=== PATIENT | male | born 1940 | race Caucasian/White ===

== ENCOUNTER → 2023-11-08 16:37 | Outpatient (REF) | payer MEDICARE, BC, SELFPAY ==
[2023-11-08 18:59] LABS: % Basophils 0.8 % (0-2); % Eosinophils 4.5 % (0-6); % Immature Granulocytes 0.3 % (0-0.5); % Lymphocytes 38.1 % (20.5-51.1); % Monocytes 10.6 % (1.7-9.3); % Neutrophils 45.7 % (42.2-75.2); Absolute Basophils 0.1 10^3/uL (0-0.2); Absolute Eosinophils 0.3 10^3/uL (0-0.7); Absolute Lymphocytes 2.3 10^3/uL (1.2-3.4); Absolute Monocytes 0.6 10^3/uL (0.1-0.6); Absolute Neutrophils 2.7 10^3/uL (1.4-6.5); Hematocrit 43.5 % (39.0-52.0); Hemoglobin 14.8 g/dL (13.0-18.0); Mean Corpuscular Volume 94.2 fL (80.0-94.0); Mean Platelet Volume 11.2 fL (7.4-10.4); Nucleated Red Blood Cells % 0 % (-); Platelet Count 178 10^3/uL (130-400); Red Blood Cell Count 4.62 10^6/uL (4.70-6.10); Red Cell Dist. Width 12.8 % (11.5-14.5)
[2023-11-08 19:13] LABS: Blood Urea Nitrogen 19 mg/dl (9-20); Calcium 9.6 mg/dl (8.4-10.2); Carbon Dioxide 25 mmol/L (22-30); Chloride 109 mmol/L (98-107); Glucose 93 mg/dl (70-99); Potassium 4.3 mmol/L (3.5-5.1); Sodium 141 mmol/L (135-145); eGFR > 60.00
== END ==
LOC: REG 16:37
PROVIDERS: ATTENDING PHYSICIAN Specialist; FAMILY PHYSICIAN Internal Medicine
DX: Z01.818 Encounter for other preprocedural examination (principal)
CPT/HCPCS: 36415; 80048; 85025

== ENCOUNTER → 2023-11-14 08:59 | Outpatient (REF) | payer MEDICARE, BC, SELFPAY | LOC: RCS 08:59 | PROVIDERS: ATTENDING PHYSICIAN Internal Medicine Cardiovascular Disease; FAMILY PHYSICIAN Internal Medicine | DX: R06.02 Shortness of breath (principal) | CPT/HCPCS: 93306 ==

== ENCOUNTER → 2023-11-15 06:55 | Outpatient (REF) | payer MEDICARE, BC, SELFPAY ==
[2023-11-15] MEDS: FLUSH (NSS) 1 FLUSH IV (08:38)
[2023-11-15] MEDS: LEXISCAN 0.400000000000000022 MG IV (08:38)
== END ==
LOC: RCS 06:55
PROVIDERS: ATTENDING PHYSICIAN Internal Medicine Cardiovascular Disease; FAMILY PHYSICIAN Internal Medicine
DX: R06.02 Shortness of breath (principal)
CPT/HCPCS: 78452; 93017; A9500; J2785

== ENCOUNTER → 2024-06-11 09:54 | Outpatient (REF) | payer MEDICARE, BC, SELFPAY | LOC: PAVMRI 09:54 | PROVIDERS: ATTENDING PHYSICIAN Specialist; FAMILY PHYSICIAN Internal Medicine | DX: M54.16 Radiculopathy, lumbar region (principal) | CPT/HCPCS: 72148 ==

== ENCOUNTER 2024-09-06 06:11 | Day surgery (SDC) | payer MEDICARE, BC, SELFPAY ==
[2024-09-06 07:04] VITALS: BMI 29.0
[2024-09-06 07:05] VITALS: BP 120/77; BMI 29.0
[2024-09-06 10:10] VITALS: BP 110/75
[2024-09-06 10:15] VITALS: BP 110/68
[2024-09-06 10:30] VITALS: BP 112/72
[2024-09-06 10:58] VITALS: BP 121/74
[2024-09-06 11:00] VITALS: BP 121/74
== END 2024-09-06 11:10 | disposition home or self-care (01) ==
LOC: SDS 06:11
PROVIDERS: ATTENDING PHYSICIAN Internal Medicine Gastroenterology
DX: D12.0 Benign neoplasm of cecum (principal); K64.0 First degree hemorrhoids
CPT/HCPCS: 45390; 88305

== ENCOUNTER 2024-09-06 21:28 | Inpatient (IN) | payer MEDICARE, BC, SELFPAY ==
[2024-09-06] VITALS (8 sets, daily range): BP systolic 73–140; BP diastolic 51–81; BMI 28.3
[2024-09-06] MEDS: NSS 1000 IV ×2 (17:58→23:25)
[2024-09-06 18:19] LABS: % Basophils 0.6 % (0-2); % Eosinophils 3.5 % (0-6); % Immature Granulocytes 0.3 % (0-0.5); % Lymphocytes 27.2 % (20.5-51.1); % Neutrophils 59.4 % (42.2-75.2); Absolute Basophils 0.1 10^3/uL (0-0.2); Absolute Eosinophils 0.3 10^3/uL (0-0.7); Absolute Lymphocytes 2.2 10^3/uL (1.2-3.4); Absolute Monocytes 0.7 10^3/uL (0.1-0.6); Absolute Neutrophils 4.7 10^3/uL (1.4-6.5); Hematocrit 43.7 % (39.0-52.0); Hemoglobin 14.7 g/dL (13.0-18.0); Mean Corp Hgb Conc. 33.6 g/dL (33.0-37.0); Mean Platelet Volume 10.6 fL (7.4-10.4); Nucleated Red Blood Cells % 0 % (-); Platelet Count 213 10^3/uL (130-400); Red Cell Dist. Width 12.7 % (11.5-14.5)
[2024-09-06 18:30] LABS: PT 14.8 Sec (11.4-14.6)
[2024-09-06 18:36] LABS: ALT (SGPT) 24 U/L (0-50); AST (SGOT) 35 U/L (17-59); Albumin 4.5 g/dl (3.5-5.0); Alkaline Phosphatase 60 U/L (38-126); Blood Urea Nitrogen 23 mg/dl (9-20); Calcium 9.4 mg/dl (8.4-10.2); Carbon Dioxide 18 mmol/L (22-30); Chloride 107 mmol/L (98-107); Estimated Creatinine Clearance 55 ml/min; Glucose 108 mg/dl (70-99); Potassium 4.4 mmol/L (3.5-5.1); Sodium 138 mmol/L (135-145); Total Protein 6.7 g/dl (6.3-8.2); eGFR > 60.00
--- NOTE | 2024-09-06 20:01 | ED.GENMED ---
History of Present Illness
General
Chief Complaint: Rectal Bleeding
Time Seen by Provider: 09/06/24 17:53
History of Present Illness
History of Present Illness:
83-year-old male with history of hyperlipidemia and hypertension presenting to the emergency department with multiple episodes of blood per rectum. Patient status post polyp removal by GI today by colonoscopy. He reports that when he left the
procedure, had no issue. Upon returning home, had 2 episodes of large-volume blood. He has not on any blood thinners. Denies any issues with bleeding in the past. Denies any associate abdominal pain. Does report some lightheadedness. Denies
chest pain or difficulty breathing. Denies additional acute medical complaints
Past History
Past History
ED Past Medical History: HTN, Other (gout ) and Other (hypercalcemia )
ED Past Surgical History: Orthopedic (bilateral carpal tunnel surgery) and Other (parathyroid removed 2010)
Social History
Tobacco: Smoker
Personal:
Living: with family
Employment: Retired
Phy Exam
Physical Exam
Physical Exam:
General: Pale
HEENT: protecting airway
Neck: appears supple
CV: Normal heart rate, regular rhythm
Resp: No accessory muscle use, no increased work of breathing, lungs clear to auscultation bilaterally
Abd: Soft and non-distended, no tenderness to palpation
Extremities: No deformities, no swelling
Neuro: alert, no focal neurologic deficit
: deferred
Rectal: No significant external hemorrhoids
Psych: Normal affect
Skin: Intact
Course
Orders/Labs/Results
Orders:
Orders
09/06/24 17:54
0.9% Sodium Chloride 1000 ml [Nss] 1,000 ml IV BOLUS
09/06/24 17:56
CT Abd/pelvis Angio W/wo Iv Urgent
Comment:
Reason For Exam: active GI bleeding after polyp removed today
IV Insert/Care/Rem.- Treatment PRN
09/06/24 17:57
Type And Crossmatch [Type+Screen] Urgent
Complete Blood Count/With Diff Urgent
Comprehensive Metabolic Panel Urgent
PTT Urgent
Prothrombin Time Urgent
09/06/24 18:33
ABO2 Urgent
BBK Wristband Number:
Associate notified that ABO2 has been ordered: [id number]
Date: 09/06/24
Time: 18:27
Boilermaker Pipe Fitter ID: [id number]
Abnormal Lab Results
09/06/24
17:57
RBC 4.60 L 10^6/uL
(4.70-6.10)
MCV 95.0 H fL
(80.0-94.0)
MCH 32.0 H pg
(27.0-31.0)
MPV 10.6 H fL
(7.4-10.4)
Absolute Monos (auto) 0.7 H 10^3/uL
(0.1-0.6)
PT 14.8 H Sec
(11.4-14.6)
Carbon Dioxide 18 L mmol/L
(22-30)
BUN 23 H mg/dl
(9-20)
Glucose 108 H mg/dl
(70-99)
09/06/24 17:57
09/06/24 17:57
Vital Signs
Initial and Last Documented VS:
Initial Vital Signs
Temp Pulse Resp BP Pulse Ox
97.4 F 103 18 73/51 96
09/06/24 17:36 09/06/24 17:36 09/06/24 17:36 09/06/24 17:36 09/06/24 17:36
Last Documented Vital Signs
Temp Pulse Resp BP Pulse Ox
97.4 F 71 13 112/77 95
09/06/24 17:38 09/06/24 18:30 09/06/24 18:30 09/06/24 18:00 09/06/24 18:30
MDM/Problems Addressed
MDM/Problems Addressed:
83-year-old male presenting for rectal bleeding after polyp removal by GI today. Vital signs on arrival significant for hypotension.
On exam, patient is awake and alert. He is resting comfortably. He notes 2 episodes of large-volume bleeding prior to arrival. After GI intervention, concern for active arterial GI bleeding. Patient started immediately on IV fluids for volume
resuscitation given hypotension. Will plan for laboratory analysis including CBC and type and screen. Will make GI aware and plan for GI bleeding scan.
18:20 - GI made aware
20:10 - Hemoglobin within normal limits and blood pressure has stabilized with IV fluids. Patient did pass a large volume of blood per rectum in the ER, however blood pressure maintained. CT shows acute GI bleeding. IR made aware, is coming in
for procedure. Plan for admission. Patient and updated at bedside
*Critical Care Note
Total Time (30-74mins, 75-104mins- exclusive of procedures): 52
comment:
The high probability of a clinically significant, sudden or life threatening deterioration of the hemodynamic system(s) required my full and direct attention, intervention and personal management. The aggregate critical care time was 52 minutes.
This time is in addition to time spent performing reported procedures but includes the following:
[x] Data Review and interpretation
[x] Patient assessment and monitoring of vital signs
[x] Documentation
[x] Medication orders and management
ED Attending Note
-
Portions of this chart may have been created with voice recognition software.� Occasional wrong word or��sound alike� substitutions may have occurred due to the inherent limitations of voice recognition software.
Discharge Plan
Departure
Patient Disposition: Admit
Date of Disposition: 09/06/24
Time of Disposition: 20:14
Presentation/result/management discussed w/ accepting MD/DO: Hospitalist
Patient with high blood pressure during this ER visit?: No
Condition: Critical
Discharge Problem:
GI bleed, Hypotension
Prescriptions:
No Action
atorvastatin 20 MG tablet
20 mg PO DAILY
aspirin 81 MG tablet,chewable
81 mg PO DAILY
lisinopril [Zestril] 40 MG tablet
40 mg PO DAILY
febuxostat [Uloric] 40 mg Tablet
20 mg PO DAILY
Theragen Tablet
1 tab PO DAILY
Referrals:
Gabo Ricks MD [Family Provider] -
Interventions
Interventions:
*Risk Screen - Suicide Last Done: 09/06/24 17:38
*General Assessment Last Done: 09/06/24 18:04
*Neglect/Abuse Screening Last Done: 09/06/24 18:04
*ED- Fall Risk Assessment Last Done: 09/06/24 18:04
GV-Vqcune-Ecsrfargxh Assessment Last Done: 09/06/24 18:04
ED- Cardiac Assessment Last Done: 09/06/24 18:04
ED- Pulmonary Assessment Last Done: 09/06/24 18:04
Discharge Date and Time
Print Language: URDU
--- NOTE | 2024-09-06 20:39 | HPS.HSE ---
Family Physician
-
Family Physician: Gabo Ricks
Chief Complaint
-
Rectal bleeding
History of Present Illness
Patient is a 83-year-old male with past medical history significant for hyperlipidemia, essential hypertension and gout who presented to [facility] ED for evaluation of bright red blood from rectum. Patient reports that he had a colonoscopy
with Dr. Barakat today to remove a large polyp. He reports that when he left after procedure today he had no issues and went home to nap. He reports getting up from nap a few hours after arriving home and went to bathroom where he had a large amount of
bright red blood from rectum x2 so he returned to hospital ED for evaluation. Patient reports having a 3rd episode after arrival at hospital and was associated with dizziness and diaphoresis. Patient denies any recent illness, fever, chills, cough,
shortness of breath, chest pain, nausea, vomiting, constipation, diarrhea or urinary symptoms.
Medical History
Past Medical History
Past Medical History: Reports Other
Additional Past Medical History:
hyperlipidemia
essential hypertension
gout
Past Surgical History: Reports Other
Additional Past Surgical History:
colonoscopy
Left total hip
partial parathyroidectomy
bilateral carpal tunnel repair
Social History
Tobacco: Non-smoker
Alcohol: Occasional (2-3 drinks per week )
Drug: None
Personal:
Living: With Family
Employment: Retired
Family History
Family History: Not pertinent
Allergies / Home Medications
Allergies reflects when Allergies were last updated in [employer].
Home Medications with original date entered in [employer]
Allergy/Medication List:
Allergies
Allergy/AdvReac Type Severity Reaction Status Date / Time
No Known Allergies Allergy Verified 09/06/24 06:58
Home Medications
aspirin 81 mg chewable tablet 81 mg PO DAILY 01/04/10
atorvastatin 20 mg tablet 20 mg PO DAILY 01/04/10
lisinopril 40 mg tablet (Zestril) 40 mg PO DAILY 02/06/18
febuxostat 40 mg tablet (Uloric) 20 mg PO DAILY 09/06/24
therapeutic multivitamin 1 tab PO DAILY 09/06/24
Review of Systems
-
History Source: Patient
Constitutional: Reports No Symptoms
EENT: Reports No Symptoms
Respiratory: Reports No Symptoms
Cardiac: Reports No Symptoms
Abdomen/GI: Reports No Symptoms and Bloody Stools
: Reports No Symptoms
Musculoskeletal: Reports No Symptoms
Skin: Reports No Symptoms
Neurological: Reports No Symptoms
Endocrine: Reports No Symptoms
Hematologic/Lymphatic: Reports No Symptoms
Psych: Reports No Symptoms
Physical Exam
Vital Signs
Vital Signs
Temp Pulse Resp BP Pulse Ox
97.4 F 71 13 112/77 95
09/06/24 17:38 09/06/24 18:30 09/06/24 18:30 09/06/24 18:00 09/06/24 18:30
Physical Exam
General: Well Developed, Well Nourished and No Apparent Distress
HEENT: NormoCephalic, Moist mucous membranes, Atraumatic, PERRLA, Rendon Conjunctivae, Nose Appears Normal and Ears Appear Normal
Respiratory: Clear and Non Labored Respirations
Cardiac: S1/S2 and Regular Rhythm; No Murmur, Rub or Gallop
GI: Soft, Non Tender, Non Distended and Normal Bowel Sounds; No Organomegaly
Rectal: Hem Positive
Genito-urinary: Deferred by me
Musculoskeletal: No Clubbing, No Cyanosis and No Edema
Skin: No Rash
Neuro: Awake, Alert, AO x 3 and Nonfocal/grossly intact
Psych: Calm and Intact Judgment/Insight
Laboratory Results
-
09/06/24 17:57
09/06/24 17:57
Laboratory Results
PT 14.8 Sec (11.4-14.6) H 09/06/24 17:57
INR 1.10 09/06/24 17:57
APTT 30.0 Sec (23.4-35.0) 09/06/24 17:57
Total Bilirubin 1.0 mg/dl (0.2-1.3) 09/06/24 17:57
AST 35 U/L (17-59) 09/06/24 17:57
ALT 24 U/L (0-50) 09/06/24 17:57
Alkaline Phosphatase 60 U/L (38-126) 09/06/24 17:57
Data Reviewed
-
CT Scan: Report Reviewed by me (Abd/Pel: 1. ACUTE ACTIVE INTRALUMINAL GASTROINTESTINAL BLEED in the CECUM at the level of the ileocecal junction with a large amount of intraluminal hemorrhage extending from the cecum into the ascending colon (12.9
cm in length). 2. Moderate distention of the rectum with intraluminal hemorrhage)
Lab Data: Labs Reviewed by me (hgb 14.7, hct 43.7, BUN 23, creat 1.2)
Impression/Plan
-
IMPRESSION/PLAN:
#GI bleed
Abd/Pel CT: 1. ACUTE ACTIVE INTRALUMINAL GASTROINTESTINAL BLEED in the CECUM at the level of the ileocecal junction with a large amount of intraluminal hemorrhage extending from the cecum into the ascending colon
(12.9 cm in length).
2. Moderate distention of the rectum with intraluminal hemorrhage.
3. 2.9 cm diameter infrarenal abdominal aortic aneurysm.
4. Large number of bilateral renal cysts.
5. 5 mm nonobstructing right intrarenal calculus.
6. Small hiatal hernia.
7. Chronic urinary bladder outlet obstruction.
8. 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
- Admit to IMU
- Consult GI
- Consult IR
- IVF
- hold antihypertensives
- NPO
#hyperlipidemia
- continue atorvastatin
#essential hypertension
- hold lisinopril
#gout
- continue febuxostat
Code status: full code
DVT Prophylaxis: SCDs
--- NOTE | 2024-09-06 20:39 | W.PN.UPDATE ---
Update Note
Progress Note Update
Patient seen conjunction with PAWAN. I agree with the findings on history and physical. I concur with assessment and plan listed otherwise.
This is an 83-year-old with past medical history significant for hypertension, hyperlipidemia presenting to the emergency department with rectal bleeding. He is postop day #0 status post colonoscopy with removal of proximal cecal polyp this a.m.
Patient reports likely sessile polyp biopsy pending. Patient reports that at around 4 PM he woke up and had a bowel movement that was. Bloody. Reported that the bowl was filled with blood. He laid back and felt dizzy. He had another bowel
movement that was also bloody and associated with dizziness. After the second bowel movement decided come to the emergency department.
Patient only takes 81 mg aspirin daily. He is not on any thinners. He denies any NSAID use.
On immediate arrival in the emergency department he was afebrile, he was hypotensive to the 80s. He was given 1 L of normal saline. Current vitals showed blood pressure of 112/70 with a pulse of 71 satting 95% on room air. Hemoglobin was 14 and
unchanged from prior. Platelets were normal. Electrolytes BUN/creatinine with unremarkable.
CT of the abdomen pelvis showed active hemorrhage at the level of the ileocecal junction with large amount of intraluminal hemorrhage extending from the cecum into the ascending colon.
IR consulted and patient to be taken to IR suite.
Assessment and plan
Post procedure hemorrhage likely secondary to removal of large sessile polyp. HD unstable initially requiring IV fluids. Hgb has remained stable thus far.
- admit to IMU
- NPO for now
- IV fluids
- 2 large bore IVs placed
- type and screen, transfuse for HD instability or Hgb < 7
- IR taking patient to suite now
- GI consultation in am
DVT PPX - SCDs
Code status - Full Code
--- NOTE | 2024-09-06 21:35 | PTCARENOTE ---
Patient asking about his phone upon arrival to IR, stating he had it 'next to him in the bed'-his belongings and bedsheets searched by this RN. No phone found. Patient had shoes, pants and belt, shirt/sweater and reading glasses. This RN also
checked with CT scan staff regarding phone (as he was in that department prior to arriving in IR) and phone was not there either. Receiving RN in IMU notified.
--- NOTE | 2024-09-06 22:30 | W.PN.UPDATE ---
Update Note
Progress Note Update
SMA arteriogram performed, including superselective agram of multiple branches of the right colic branch of the SMA in the area of the colonoscopic clips. No extravasation of contrast was seen, therefore no embolization was performed.
He remained hemodynamically stable throughout the procedure, and did not pass bloody BM.
Bedrest for 2 hours.
[2024-09-06 23:48] LABS: Hematocrit 34.6 % (39.0-52.0)
[2024-09-07] VITALS (16 sets, daily range): BP systolic 100–136; BP diastolic 56–95; PULSE 70–111; BMI 27.9
--- NOTE | 2024-09-07 04:29 | PTCARENOTE ---
Received patient from [facility] overnight. BP stable with maps above 65. Orthostatic vital signs obtained. One large amount of blood per rectum. No complaints of dizziness/ diaphoresis. Continuing with q6h H+H.
[2024-09-07 04:30] LABS: Hematocrit 32.5 % (39.0-52.0); Hemoglobin 11.1 g/dL (13.0-18.0); Mean Corp Hgb Conc. 34.2 g/dL (33.0-37.0); Mean Corpuscular Hgb 32.5 pg (27.0-31.0); Mean Platelet Volume 10.8 fL (7.4-10.4); Platelet Count 154 10^3/uL (130-400); Red Blood Cell Count 3.42 10^6/uL (4.70-6.10); Red Cell Dist. Width 12.8 % (11.5-14.5); White Blood Cell Count 8.5 10^3/uL (4.8-10.8)
[2024-09-07] MEDS: ULORIC 20 MG PO (08:37)
[2024-09-07] MEDS: LIPITOR 20 MG PO (08:38)
[2024-09-07] MEDS: NSS (PRESERVATIVE FREE) 10 ML IV (08:39)
[2024-09-07] MEDS: PROTONIX IV 40 MG IV (08:39)
[2024-09-07] MEDS: NSS 1000 IV ×2 (08:40→19:57)
--- NOTE | 2024-09-07 09:42 | W.PN.HOSP.TC ---
Today's Communication/Plan
-
Stable for telemetry
Assessment / Plan
Assessment / Plan
83-year-old male with past medical history significant for hyperlipidemia, essential hypertension and gout who presented to [facility] ED for evaluation of bright red blood from rectum. Patient reports that he had a colonoscopy with Dr. Barakat
today to remove a large polyp. He reports that when he left after procedure today he had no issues and went home to nap. He reports getting up from nap a few hours after arriving home and went to bathroom where he had a large amount of bright red
blood from rectum x2 so he returned to hospital ED for evaluation. Patient reports having a 3rd episode after arrival at hospital and was associated with dizziness and diaphoresis.
#Post polypectomy bleed
#Acute blood loss anemia
Appreciate IR input, 09/06 SMA arteriogram was performed, no extravasation of contrast was seen, therefore no embolization was performed
GI consult pending, trend hemoglobin
#Hyperlipidemia
Continue statin
#Essential hypertension
Hold lisinopril
#Gout
Continue febuxostat
DVT prophylaxis�SCDs
Full code
Total time spent to see the patient on the floor, examine the patient, review data and lab results, discuss treatment plan with patient, nursing staff around 45 minutes.
Physical Exam
General: No acute distress
HEENT: Normocephalic, Atraumatic, EOMI, MMM
Respiratory: Clear to Auscultation bilaterally
Cardiac: Normal S1/S2, Regular Rate and Rhythm
GI: Soft, Nontender, Nondistended, Normal Bowel Sounds
Extremities: No Clubbing, Cyanosis, or Edema
Neuro: Nonfocal/Grossly Intact
Anticipated Discharge: 24 - 48 hours
Subjective/Interval History
-
Date of Service: September 07, 2024
Last episode of rectal bleeding was at 11 PM yesterday. Denies lightheadedness, denies dizziness. No fever, no vomiting.
Objective Data
-
Labs:
Laboratory Results
09/06/24 09/07/24 09/07/24
23:38 04:00 04:00
WBC 8.5
Hgb 12.0 L Cancelled 11.1 L
Hct 34.6 L Cancelled
Plt Count
09/07/24 09/07/24 09/07/24
04:00 10:40 16:40
WBC
Hgb Pending Pending
Hct 32.5 L Pending Pending
Plt Count 154 D
Vital Signs:
Vital Signs
Temp Pulse Resp BP Pulse Ox
98.6 F 72 11 100/58 95
09/07/24 07:18 09/07/24 06:07 09/07/24 06:07 09/07/24 06:07 09/07/24 06:07
I&O
09/06/24 09/07/24 09/08/24
06:59 06:59 06:59
Intake Total 1140 / 1140
Balance 1140 / 1140
[2024-09-07 11:09] LABS: Hematocrit 32.8 % (39.0-52.0); Hemoglobin 11.1 g/dL (13.0-18.0)
--- NOTE | 2024-09-07 16:17 | CM ---
Addendum entered by Preethi Gomez RN 09/07/24 16:23:
Patient has first floor bedroom and there are 2 chair lifts to 2nd floor and basement.
Original Note:
Patient with Dx Post polypectomy bleed, Acute blood loss anemia. O2 2L. Clear liquids/IVF.
Spoke with patient's Miley;
the patient resides with his in a 2 story house with 1 step at garage entrance.
The patient was independent in ADLs and ambulation using SPC when out.
DME - RW, SPC, raised toilet seat
Prior [facility]
No prior SNF
PCP - [facility] [address] [facility], [place]
Pharmacy - [facility] [address] [facility], [place]
No CM d/c needs identified.
Plan home.
--- NOTE | 2024-09-07 17:45 | PTCARENOTE ---
Ambulated to bathroom flushed but stated it was 'alot of blood' - hat placed in toilet- educated on using - also asked him to use urinal for urine output measurements. IVFs infusing as ordered. Offered clear liq. diet -menu and phone. Denies
pain.
--- NOTE | 2024-09-07 19:18 | CON.GI ---
Consultation
-
Date/Time Consultation Requested: 09/07/2024
Date/Time Consultation Performed: 09/07/2024
Performing Provider: Bucky Barakat
Reason for Consultation: hematochezia, rectal bleeding
Medical History
Chief Complaint / HPI
Chief Complaint: hematochezia, rectal bleeding
History of Present Illness:
83-year-old male with history of hyperlipidemia, HTN, and gout who presents with hematochezia/rectal bleeding post EMR. I performed colonoscopy with EMR of large (40 mm) cecal polyp on 09/06. Endoclips were placed post resection. He had uneventful
recovery and was discharged home. He later returned several hours later with significant rectal bleeding and dizziness. He had a CTA which showed extravasation in the cecal area and IR embolization was attempted but not performed due to absence of
active hemorrhage.
Past Medical History
Past Medical History: HTN, Hypercholesterolemia and Other
Past Surgical History: Other
Social History
Tobacco: Non-Smoker
Alcohol: Occasional
Family History
Family History: Reviewed & Not Pertinent
Allergies / Home Medications
Allergy/AdvReac Type Severity Reaction Status Date / Time
No Known Allergies Allergy Verified 09/06/24 06:58
�Medication �Instructions �Recorded
aspirin 81 mg chewable tablet 81 mg PO DAILY Blood Clot 01/04/10
Prevention/Tx
atorvastatin 20 mg tablet 20 mg PO DAILY High Cholesterol 01/04/10
lisinopril 40 mg tablet (Zestril) 40 mg PO DAILY Blood Pressure 02/06/18
febuxostat 40 mg tablet (Uloric) 20 mg PO DAILY Gout 09/06/24
therapeutic multivitamin 1 tab PO DAILY Supplement 09/06/24
Review of Systems
Vital Signs
Temp Pulse Resp BP Pulse Ox
98.3 F 74 17 132/73 96
09/07/24 15:04 09/07/24 16:00 09/07/24 16:00 09/07/24 16:00 09/07/24 08:00
Physical Exam
Exam
General: Well Developed and Well Nourished
HEENT: Normocephalic
Respiratory: Clear
Cardiac: S1/S2 and Regular Rhythm
GI: Soft, Non Tender, Non Distended and Normal Bowel Sounds
Results
WBC 8.5 10^3/uL (4.8-10.8) 09/07/24 04:00
Hgb Cancelled 09/07/24 16:40
Hct Cancelled 09/07/24 16:40
MCV 95.0 fL (80.0-94.0) H 09/07/24 04:00
Plt Count 154 10^3/uL (130-400) D 09/07/24 04:00
Absolute Neuts (auto) 4.7 10^3/uL (1.4-6.5) 09/06/24 17:57
PT 14.8 Sec (11.4-14.6) H 09/06/24 17:57
INR 1.10 09/06/24 17:57
APTT 30.0 Sec (23.4-35.0) 09/06/24 17:57
Sodium 138 mmol/L (135-145) 09/06/24 17:57
Potassium 4.4 mmol/L (3.5-5.1) 09/06/24 17:57
Chloride 107 mmol/L (98-107) 09/06/24 17:57
Carbon Dioxide 18 mmol/L (22-30) L 09/06/24 17:57
BUN 23 mg/dl (9-20) H 09/06/24 17:57
Creatinine 1.2 mg/dL (0.7-1.3) 09/06/24 17:57
Calcium 9.4 mg/dl (8.4-10.2) 09/06/24 17:57
Total Bilirubin 1.0 mg/dl (0.2-1.3) 09/06/24 17:57
AST 35 U/L (17-59) 09/06/24 17:57
ALT 24 U/L (0-50) 09/06/24 17:57
Alkaline Phosphatase 60 U/L (38-126) 09/06/24 17:57
Diagnostic Image Results:
Prior GI Procedures:
EGD:
Colonoscopy:
Impression: - Hemorrhoids found on perianal exam.
- The examined portion of the ileum was normal.
- One 40 mm polyp in the cecum at the ileocecal valve,
removed with mucosal resection. Resected and
retrieved. Treated with argon plasma coagulation
(APC). Clips (MR conditional) were placed.
- Internal hemorrhoids.
- Mucosal resection was performed. Resection and
retrieval were complete.
Assessment / Plan
-
83-year-old male with history of hyperlipidemia, HTN, and gout who presents with hematochezia/rectal bleeding post EMR.
Impression / Rec:
1. Post polypectomy hemorrhage - I had performed EMR of large (40 mm) cecal polyp on 09/06. He later returned several hours later with significant rectal bleeding and dizziness. He had a CTA which showed extravasation in the cecal area and IR
embolization was attempted but not performed due to absence of active hemorrhage. He is normotensive. His Hgb remains stable at 11.1. He had bloody bowel movement overnight but reports this was maroon-colored. It appears residual blood may be
making its way out. Will continue to monitor. Okay for clear liquid diet. If he continues to have rectal bleeding and/or decrease in Hgb is noted then we will plan for repeat colonoscopy for retreatment.
Total Time Spent with Patient (in minutes): 55
-
-
Thank you for consultation and allowing me to participate in the patient's care. Please call the instrumentation manager GI physician during the after hours with any questions or concerns.
[2024-09-08] VITALS (10 sets, daily range): BP systolic 98–131; BP diastolic 55–107; BMI 27.2
--- NOTE | 2024-09-08 01:02 | PTCARENOTE ---
Received patient at change of shift. Patient aaox3, affect friendly. NSR on the monitor, occasional PVC earlier this shift. Positive radial pulses b/l, weak pedal pulses b/l. Lungs CTA throughout, o2 sat 97% on ra. BS active x4, continent of bowel
and bladder. Patient had 1 bm earlier this shift, blood noted. Patient using urinal as needed. Skin overall intact. Patient has Right a/c IV capped, Right forearm IV has NSS at 100ml/hr continuous. Patient using call hernandez appropriately. Will
continue to monitor.
[2024-09-08] MEDS: NSS 1000 IV ×2 (04:23→17:18)
[2024-09-08 04:50] LABS: Mean Corp Hgb Conc. 33.3 g/dL (33.0-37.0); Mean Corpuscular Hgb 31.8 pg (27.0-31.0); Mean Corpuscular Volume 95.5 fL (80.0-94.0); Mean Platelet Volume 10.7 fL (7.4-10.4); Platelet Count 128 10^3/uL (130-400); Red Blood Cell Count 3.14 10^6/uL (4.70-6.10); Red Cell Dist. Width 12.8 % (11.5-14.5); White Blood Cell Count 6.2 10^3/uL (4.8-10.8)
[2024-09-08 05:08] LABS: Blood Urea Nitrogen 14 mg/dl (9-20); Calcium 8.6 mg/dl (8.4-10.2); Carbon Dioxide 21 mmol/L (22-30); Chloride 113 mmol/L (98-107); Estimated Creatinine Clearance 74 ml/min; Glucose 94 mg/dl (70-99); Magnesium 1.8 mg/dl (1.6-2.3); Potassium 4.1 mmol/L (3.5-5.1); Sodium 137 mmol/L (135-145); eGFR > 60.00
[2024-09-08] MEDS: ULORIC 20 MG PO (08:08)
[2024-09-08] MEDS: PROTONIX IV 40 MG IV (08:09)
[2024-09-08] MEDS: NSS (PRESERVATIVE FREE) 10 ML IV (08:09)
[2024-09-08] MEDS: LIPITOR 20 MG PO (08:09)
--- NOTE | 2024-09-08 08:34 | W.PN.HOSP.TC ---
Today's Communication/Plan
-
See bold
Assessment / Plan
Assessment / Plan
83-year-old male with past medical history significant for hyperlipidemia, essential hypertension and gout who presented to [facility] ED for evaluation of bright red blood from rectum. Patient reports that he had a colonoscopy with Dr. Barakat
today to remove a large polyp. He reports that when he left after procedure today he had no issues and went home to nap. He reports getting up from nap a few hours after arriving home and went to bathroom where he had a large amount of bright red
blood from rectum x2 so he returned to hospital ED for evaluation. Patient reports having a 3rd episode after arrival at hospital and was associated with dizziness and diaphoresis.
#Post polypectomy bleed
#Acute blood loss anemia
Patient had colonoscopy of 09/06 with polypectomy of 40 mm cecal polyp
Appreciate IR input, 09/06 SMA arteriogram was performed, no extravasation of contrast was seen, therefore no embolization was performed
Hemoglobin 10.0 today, was 11.1, was 14.7 upon admission
GI following, continue to trend hemoglobin
If patient continues to have bleeding or decrease in hemoglobin, he may need a repeat colonoscopy from a treatment
#Hyperlipidemia
Continue statin
#Essential hypertension
Hold lisinopril
#Gout
Continue febuxostat
DVT prophylaxis�SCDs
Full code
Total time spent to see the patient on the floor, examine the patient, review data and lab results, discuss treatment plan with patient, nursing staff around 40 minutes.
Physical Exam
General: No acute distress
HEENT: Normocephalic, Atraumatic, EOMI, MMM
Respiratory: Clear to Auscultation bilaterally
Cardiac: Normal S1/S2, Regular Rate and Rhythm
GI: Soft, Nontender, Nondistended, Normal Bowel Sounds
Extremities: No Clubbing, Cyanosis, or Edema
Neuro: Nonfocal/Grossly Intact
Anticipated Discharge: 24 - 48 hours
Subjective/Interval History
-
Date of Service: September 08, 2024
Patient had a large episode of bloody stools last night at 11 PM. Denies chest pain, shortness of breath. No fever, no vomiting.
Objective Data
-
Labs:
Laboratory Results
09/08/24
04:31
WBC 6.2
Hgb 10.0 L
Hct 30.0 L
Plt Count 128 L
Sodium 137
Potassium 4.1
Chloride 113 H
Carbon Dioxide 21 L
BUN 14
Creatinine 0.9
Glucose 94
Calcium 8.6
Vital Signs:
Vital Signs
Temp Pulse Resp BP Pulse Ox
97.8 F 62 16 108/59 95
09/08/24 02:55 09/08/24 06:00 09/08/24 06:00 09/08/24 06:00 09/07/24 21:47
I&O
09/07/24 09/08/24 09/09/24
06:59 06:59 06:59
Intake Total 1140 / 1140 1600 / 1600
Output Total 1501 / 1501
Balance 1140 / 1140 99 / 99
--- NOTE | 2024-09-08 11:31 | W.PN.GI.CBS2 ---
Today's Communication / Plan
-
FLD, possible regular diet for dinner
Assessment / Plan
-
83-year-old male with history of hyperlipidemia, HTN, and gout who presents with hematochezia/rectal bleeding post EMR.
Had 1 BM o/n, maroon colored blood/clots. Denies pain. Hgb down to 10 from 11.1 yesterday. His post polypectomy hemorrhage appears to be resolving. Will advance to full liquid diet. Will also consider advancing to regular diet for dinner after
reassessment in the PM.
Total Time Spent with Patient (in minutes): 35
Subjective
Subjective
Date of Service: September 08, 2024
Had 1 BM o/n, maroon colored blood/clots
Objective
Data Reviewed
Laboratory Data:
Laboratory Results
09/08/24 04:31
09/08/24 04:31
Laboratory Results
PT 14.8 Sec (11.4-14.6) H 09/06/24 17:57
INR 1.10 09/06/24 17:57
APTT 30.0 Sec (23.4-35.0) 09/06/24 17:57
Magnesium 1.8 mg/dl (1.6-2.3) 09/08/24 04:31
Total Bilirubin 1.0 mg/dl (0.2-1.3) 09/06/24 17:57
AST 35 U/L (17-59) 09/06/24 17:57
ALT 24 U/L (0-50) 09/06/24 17:57
Alkaline Phosphatase 60 U/L (38-126) 09/06/24 17:57
Vital Signs and I&O:
Vital Signs
Temp Pulse Resp BP Pulse Ox
98.8 F 62 16 108/59 95
09/08/24 07:38 09/08/24 06:00 09/08/24 06:00 09/08/24 06:00 09/07/24 21:47
I&O
09/07/24 09/08/24 09/09/24
06:59 06:59 06:59
Intake Total 1140 / 1140 1600 / 1600 360 / 360
Output Total 1501 / 1501 750 / 750
Balance 1140 / 1140 99 / 99 -390 / -390
--- NOTE | 2024-09-08 13:55 | PTCARENOTE ---
Report provided to RN on ; Pt brought to Rm [id number] via wheelchair
--- NOTE | 2024-09-08 14:00 | PTCARENOTE ---
pt arrived on unit, walked to bed. oriented to unit. call hernandez within reach. will continue to monitor.
[2024-09-09 03:22] VITALS: BP 114/62
[2024-09-09] MEDS: NSS 1000 IV (06:07)
[2024-09-09 07:13] LABS: Hematocrit 29.1 % (39.0-52.0); Hemoglobin 9.9 g/dL (13.0-18.0); Mean Corpuscular Hgb 32.6 pg (27.0-31.0); Mean Corpuscular Volume 95.7 fL (80.0-94.0); Mean Platelet Volume 11.1 fL (7.4-10.4); Platelet Count 127 10^3/uL (130-400); Red Blood Cell Count 3.04 10^6/uL (4.70-6.10); White Blood Cell Count 5.2 10^3/uL (4.8-10.8)
[2024-09-09 07:45] LABS: Blood Urea Nitrogen 14 mg/dl (9-20); Calcium 8.8 mg/dl (8.4-10.2); Carbon Dioxide 20 mmol/L (22-30); Chloride 111 mmol/L (98-107); Estimated Creatinine Clearance 66 ml/min; Glucose 92 mg/dl (70-99); Potassium 3.9 mmol/L (3.5-5.1); Sodium 139 mmol/L (135-145); eGFR > 60.00
[2024-09-09 07:51] VITALS: BP 133/84
[2024-09-09] MEDS: ULORIC 20 MG PO (08:30)
[2024-09-09] MEDS: LIPITOR 20 MG PO (08:30)
--- NOTE | 2024-09-09 09:14 | W.PN.HOSP.TC ---
Today's Communication/Plan
-
For colonoscopy tomorrow
Assessment / Plan
Assessment / Plan
83-year-old male with past medical history significant for hyperlipidemia, essential hypertension and gout who presented to [facility] ED for evaluation of bright red blood from rectum. Patient reports that he had a colonoscopy with Dr. Barakat
today to remove a large polyp. He reports that when he left after procedure today he had no issues and went home to nap. He reports getting up from nap a few hours after arriving home and went to bathroom where he had a large amount of bright red
blood from rectum x2 so he returned to hospital ED for evaluation. Patient reports having a 3rd episode after arrival at hospital and was associated with dizziness and diaphoresis.
#Post polypectomy bleed
#Acute blood loss anemia
Patient had colonoscopy of 09/06 with polypectomy of 40 mm cecal polyp
Appreciate IR input, 09/06 SMA arteriogram was performed, no extravasation of contrast was seen, therefore no embolization was performed
Hemoglobin 9.9 today, was 10.0, was 11.1, was 14.7 upon admission
GI following, continue to trend hemoglobin
For colonoscopy tomorrow
#Hyperlipidemia
Continue statin
#Essential hypertension
Hold lisinopril due to soft BP
#Gout
Continue febuxostat
DVT prophylaxis�SCDs
Full code
Updated at bedside 09/09
Total time spent to see the patient on the floor, examine the patient, review data and lab results, discuss treatment plan with patient, nursing staff around 41 minutes.
Physical Exam
General: No acute distress
HEENT: Normocephalic, Atraumatic, EOMI, MMM
Respiratory: Clear to Auscultation bilaterally
Cardiac: Normal S1/S2, Regular Rate and Rhythm
GI: Soft, Nontender, Nondistended, Normal Bowel Sounds
Extremities: No Clubbing, Cyanosis, or Edema
Neuro: Nonfocal/Grossly Intact
Anticipated Discharge: 24 - 48 hours
Subjective/Interval History
-
Date of Service: September 09, 2024
Reports 2 episodes of maroon-colored stools with clots overnight. Denies chest pain, shortness of breath, palpitations. No lightheadedness, no dizziness. No fever, no vomiting.
Objective Data
-
Labs:
Laboratory Results
09/09/24
06:34
WBC 5.2
Hgb 9.9 L
Hct 29.1 L
Plt Count 127 L
Sodium 139
Potassium 3.9
Chloride 111 H
Carbon Dioxide 20 L
BUN 14
Creatinine 1.0
Glucose 92
Calcium 8.8
Vital Signs:
Vital Signs
Temp Pulse Resp BP Pulse Ox
98.4 F 67 21 133/84 98
09/09/24 07:51 09/09/24 07:51 09/09/24 07:51 09/09/24 07:51 09/09/24 07:51
I&O
09/08/24 09/09/24 09/10/24
06:59 06:59 06:59
Intake Total 1600 / 1600 1969 / 1969
Output Total 1501 / 1501 1250 / 1250
Balance 99 / 99 720 / 720
[2024-09-09 11:28] VITALS: BP 115/68
--- NOTE | 2024-09-09 12:37 | W.PN.GI.CBS2 ---
Today's Communication / Plan
-
colonoscopy tomorrow
Assessment / Plan
-
83-year-old male with history of hyperlipidemia, HTN, and gout who presents with hematochezia/rectal bleeding post EMR.
Had maroon colored blood/clots x 2 o/n. Denies pain. Hgb stable at ~10 (9.9). Tolerated regular diet last night. Given he appears to have continued intermittent bleeding, will plan for repeat colonoscopy tomorrow, he as agreeable.
Total Time Spent with Patient (in minutes): 35
Subjective
Subjective
Date of Service: September 09, 2024
Had maroon colored bloody BM x 2 o/n.
Objective
Data Reviewed
Laboratory Data:
Laboratory Results
09/09/24 06:34
09/09/24 06:34
Laboratory Results
PT 14.8 Sec (11.4-14.6) H 09/06/24 17:57
INR 1.10 09/06/24 17:57
APTT 30.0 Sec (23.4-35.0) 09/06/24 17:57
Magnesium 1.8 mg/dl (1.6-2.3) 09/08/24 04:31
Total Bilirubin 1.0 mg/dl (0.2-1.3) 09/06/24 17:57
AST 35 U/L (17-59) 09/06/24 17:57
ALT 24 U/L (0-50) 09/06/24 17:57
Alkaline Phosphatase 60 U/L (38-126) 09/06/24 17:57
Vital Signs and I&O:
Vital Signs
Temp Pulse Resp BP Pulse Ox
98.2 F 78 21 115/68 93
09/09/24 11:28 09/09/24 11:28 09/09/24 11:28 09/09/24 11:28 09/09/24 11:28
I&O
09/08/24 09/09/24 09/10/24
06:59 06:59 06:59
Intake Total 1600 / 1600 1969
Output Total 1501 / 1501 1250 / 1250
Balance 99 / 99 720 / 720
[2024-09-09 15:36] VITALS: BP 124/85
[2024-09-09] MEDS: NULYTELY SOLUTION 2 LITERS PO (17:20)
[2024-09-09 19:35] VITALS: BP 132/78
[2024-09-09 23:18] VITALS: BP 130/80
[2024-09-10 03:05] VITALS: BP 126/70
--- NOTE | 2024-09-10 03:10 | PTCARENOTE ---
Patient took off compliance monitor. Patient stated 'I don't need it anymore. I am not bleeding. It is too uncomfortable.' Patient educated on the need to wear heart monitor and agreed to put it back on. Care ongoing.
[2024-09-10] MEDS: NULYTELY SOLUTION 2 LITERS PO (05:00)
[2024-09-10 07:57] VITALS: BP 152/95
[2024-09-10] MEDS: ULORIC PO (08:42)
[2024-09-10] MEDS: LIPITOR PO (08:42)
--- NOTE | 2024-09-10 09:35 | W.PN.GI.CBS2 ---
Today's Communication / Plan
-
cancel colonoscopy, resume diet, can d/c home if repeat Hgb this am is stable.
Assessment / Plan
-
83-year-old male with history of hyperlipidemia, HTN, and gout who presents with hematochezia/rectal bleeding post EMR.
Pt was planned for repeat colonoscopy today, but his stool output has been clear. He reported small amount of clot in the beginning which turned brown and clear after the prep. Will cancel repeat colonoscopy. Resume diet. Ok for d/c home if
repeat Hgb this am is stable. Will s/o.
Total Time Spent with Patient (in minutes): 35
Subjective
Subjective
Date of Service: September 10, 2024
No blood o/n, took bowel prep and all clear
Objective
Data Reviewed
Laboratory Data:
Laboratory Results
PT 14.8 Sec (11.4-14.6) H 09/06/24 17:57
INR 1.10 09/06/24 17:57
APTT 30.0 Sec (23.4-35.0) 09/06/24 17:57
Magnesium 1.8 mg/dl (1.6-2.3) 09/08/24 04:31
Total Bilirubin 1.0 mg/dl (0.2-1.3) 09/06/24 17:57
AST 35 U/L (17-59) 09/06/24 17:57
ALT 24 U/L (0-50) 09/06/24 17:57
Alkaline Phosphatase 60 U/L (38-126) 09/06/24 17:57
Vital Signs and I&O:
Vital Signs
Temp Pulse Resp BP Pulse Ox
97.9 F 81 18 152/95 97
09/10/24 08:40 09/10/24 07:57 09/10/24 07:57 09/10/24 07:57 09/10/24 07:57
I&O
09/09/24 09/10/24 09/11/24
06:59 06:59 06:59
Intake Total 1969 / 1969 300 / 300
Output Total 1250 / 1250
Balance 720 / 720 300 / 300
--- NOTE | 2024-09-10 09:47 | W.PN.HOSP.TC ---
Today's Communication/Plan
-
dc after food meal
Assessment / Plan
Assessment / Plan
83-year-old male with past medical history significant for hyperlipidemia, essential hypertension and gout who presented to [facility] ED for evaluation of bright red blood from rectum. Patient reports that he had a colonoscopy with Dr. Barakat
today to remove a large polyp. He reports that when he left after procedure today he had no issues and went home to nap. He reports getting up from nap a few hours after arriving home and went to bathroom where he had a large amount of bright red
blood from rectum x2 so he returned to hospital ED for evaluation. Patient reports having a 3rd episode after arrival at hospital and was associated with dizziness and diaphoresis.
#Post polypectomy bleed
#Acute blood loss anemia
Patient had colonoscopy of 09/06 with polypectomy of 40 mm cecal polyp
Appreciate IR input, 09/06 SMA arteriogram was performed, no extravasation of contrast was seen, therefore no embolization was performed
Hemoglobin stable
d/w GI, no further bleeding, can go home
#Hyperlipidemia
Continue statin
#Essential hypertension
Resume lisinopril
#Gout
Continue febuxostat
DVT prophylaxis�SCDs
Full code
Updated at bedside 09/09
Total dc time spent to see the patient on the floor, examine the patient, review data and lab results, discuss discharge plan with patient, GI doctor, nursing staff around 65 minutes.
Physical Exam
General: No acute distress
HEENT: Normocephalic, Atraumatic, EOMI, MMM
Respiratory: Clear to Auscultation bilaterally
Cardiac: Normal S1/S2, Regular Rate and Rhythm
GI: Soft, Nontender, Nondistended, Normal Bowel Sounds
Extremities: No Clubbing, Cyanosis, or Edema
Neuro: Nonfocal/Grossly Intact
Psych: calm
Anticipated Discharge: Today
Subjective/Interval History
-
Date of Service: September 10, 2024
No rectal bleeding
No abdominal pain
No nausea
Objective Data
-
Labs:
Laboratory Results
09/10/24
08:23
WBC Pending
Hgb Pending
Hct Pending
Plt Count Pending
Sodium Pending
Potassium Pending
Chloride Pending
Carbon Dioxide Pending
BUN Pending
Creatinine Pending
Glucose Pending
Calcium Pending
Vital Signs:
Vital Signs
Temp Pulse Resp BP Pulse Ox
97.9 F 81 18 152/95 97
09/10/24 08:40 09/10/24 07:57 09/10/24 07:57 09/10/24 07:57 09/10/24 07:57
I&O
09/09/24 09/10/24 09/11/24
06:59 06:59 06:59
Intake Total 1970 / 1969 300 / 300
Output Total 1250 / 1250
Balance 720 / 720 300 / 300
[2024-09-10 09:55] LABS: Hemoglobin 10.3 g/dL (13.0-18.0); Mean Corp Hgb Conc. 33.2 g/dL (33.0-37.0); Mean Corpuscular Hgb 31.9 pg (27.0-31.0); Mean Platelet Volume 11.1 fL (7.4-10.4); Platelet Count 147 10^3/uL (130-400); Red Blood Cell Count 3.23 10^6/uL (4.70-6.10); Red Cell Dist. Width 12.8 % (11.5-14.5)
--- NOTE | 2024-09-10 10:05 | CM ---
MD entered order for discharge.
Spoke with patient he said he was ready for discharge.
He said his Miley will drive him home.
IMM reviewed pt agrees with dc.
PLAN Home no needs
[2024-09-10 10:06] VITALS: BP 122/73
[2024-09-10 10:52] LABS: Blood Urea Nitrogen 11 mg/dl (9-20); Calcium 9.4 mg/dl (8.4-10.2); Carbon Dioxide 20 mmol/L (22-30); Chloride 111 mmol/L (98-107); Estimated Creatinine Clearance 66 ml/min; Glucose 95 mg/dl (70-99); Magnesium 1.8 mg/dl (1.6-2.3); Potassium 4.1 mmol/L (3.5-5.1); Sodium 141 mmol/L (135-145); eGFR > 60.00
--- NOTE | 2024-09-10 14:38 | W.DCSUMMARY ---
Discharge Summary
Discharge Data
Date of Admission: 09/06/24
Date of Discharge: 09/10/24
-
Pending Results: No
Hospital Course
83 years old male admitted with rectal bleeding. Patient had colonoscopy with polypectomy, reportedly a large around 40 mm by gastroenterology. Patient was admitted for observation and was evaluated by heating unit mechanic. Patient was
hemodynamically stable. He had CAT scan with arteriogram that showed no extravasation and embolization was not performed due to absence of active hemorrhage. Patient was given bowel preparation regimen to attempt another colonoscopy but stool
output became clear. Hemoglobin remained stable around 10. Patient was started on diet and he tolerated diet well with no nausea or abdominal pain. He did not have recurrent rectal bleeding. Patient was discharged home in a stable condition and
was advised to resume aspirin 5 days after the procedure.
Discharge Plan
-
Patient Disposition: Home (Routine Discharge)
Discharge Diagnosis/Procedures: Rectal bleeding post polypectomy
Resume aspirin on 09/12.
Diet: As tolerated
Referrals:
Gabo Ricks MD [Family Provider] -
Prescriptions:
Continued
atorvastatin 20 MG tablet
20 mg PO DAILY
lisinopril [Zestril] 40 MG tablet
40 mg PO DAILY
febuxostat [Uloric] 40 mg Tablet
20 mg PO DAILY
therapeutic multivitamin Tablet
1 tab PO DAILY
Held
aspirin 81 MG tablet,chewable
81 mg PO DAILY
Hold Instructions: Resume on 09/12/24.
Discharge Orders:
Discharge Patient (As Directed); Ordered 09/10/24
Ordered By: Ana Adams
Discharge Date and Time
Discharge Date/Time: 09/10/24 10:57
Print Language: MONEGASQUE
== END 2024-09-10 10:57 | disposition home or self-care (01) | DRG 920 ==
LOC: 3 WEST ACU 21:28
PROVIDERS: Family Medicine; Nurse Practitioner Family; ADMITTING PHYSICIAN Internal Medicine; ATTENDING PHYSICIAN Internal Medicine; CONSULT PHYSICIAN Internal Medicine Gastroenterology; EMERGENCY PHYSICIAN Student in an Organized Health Care Education/Training Program; FAMILY PHYSICIAN Internal Medicine
DX: K91.840 Postprocedural hemorrhage of a digestive system organ or structure following a digestive system procedure (principal); D62 Acute posthemorrhagic anemia; I10 Essential (primary) hypertension; E78.00 Pure hypercholesterolemia, unspecified; I71.43 Infrarenal abdominal aortic aneurysm, without rupture; K44.9 Diaphragmatic hernia without obstruction or gangrene; K64.8 Other hemorrhoids; M10.9 Gout, unspecified; M47.819 Spondylosis without myelopathy or radiculopathy, site unspecified; N32.0 Bladder-neck obstruction; I95.9 Hypotension, unspecified; F17.200 Nicotine dependence, unspecified, uncomplicated; Y83.8 Other surgical procedures as the cause of abnormal reaction of the patient, or of later complication, without mention of misadventure at the time of the procedure; Z86.0100 Personal history of colon polyps, unspecified
CPT/HCPCS: 88305; 36246; 74174; 75726; 76937; 80048; 80053; 83735; 85014; 85018; 85025; 85027; 85610; 85730; 86850; 86900; 86901; 96360; 99291; C1769; Q9967

== ENCOUNTER → 2024-11-05 12:25 | Outpatient (REF) | payer MEDICARE, BC, SELFPAY ==
[2024-11-05 12:44] LABS: % Basophils 0.8 % (0-2); % Immature Granulocytes 0.3 % (0-0.5); % Lymphocytes 41.2 % (20.5-51.1); % Monocytes 8.8 % (1.7-9.3); % Neutrophils 43.9 % (42.2-75.2); Absolute Eosinophils 0.2 10^3/uL (0-0.7); Absolute Lymphocytes 1.6 10^3/uL (1.2-3.4); Absolute Monocytes 0.4 10^3/uL (0.1-0.6); Absolute Neutrophils 1.8 10^3/uL (1.4-6.5); Hematocrit 45.4 % (39.0-52.0); Hemoglobin 14.5 g/dL (13.0-18.0); Mean Corp Hgb Conc. 31.9 g/dL (33.0-37.0); Mean Corpuscular Hgb 31.8 pg (27.0-31.0); Mean Corpuscular Volume 99.6 fL (80.0-94.0); Nucleated Red Blood Cells % 0 % (-); Platelet Count 177 10^3/uL (130-400); Red Blood Cell Count 4.56 10^6/uL (4.70-6.10); Red Cell Dist. Width 12.8 % (11.5-14.5)
[2024-11-05 12:58] LABS: Albumin 4.4 g/dl (3.5-5.0); Blood Urea Nitrogen 23 mg/dl (9-20); Calcium 9.4 mg/dl (8.4-10.2); Carbon Dioxide 22 mmol/L (22-30); Chloride 111 mmol/L (98-107); Glucose 156 mg/dl (70-99); Phosphorus 3.5 mg/dl (2.5-4.5); Potassium 4.8 mmol/L (3.5-5.1); Sodium 143 mmol/L (135-145); eGFR > 60.00
== END ==
LOC: CLAB 12:25
PROVIDERS: ATTENDING PHYSICIAN Internal Medicine
DX: K63.5 Polyp of colon (principal); K92.2 Gastrointestinal hemorrhage, unspecified
CPT/HCPCS: 36415; 80069; 85025

== ENCOUNTER → 2024-12-19 15:36 | Outpatient (REF) | payer MEDICARE, BC, SELFPAY ==
[2024-12-19 16:10] LABS: % Basophils 0.8 % (0-2); % Eosinophils 4.1 % (0-6); % Immature Granulocytes 0.2 % (0-0.5); % Lymphocytes 38.4 % (20.5-51.1); % Monocytes 12.4 % (1.7-9.3); % Neutrophils 44.1 % (42.2-75.2); Absolute Eosinophils 0.2 10^3/uL (0-0.7); Absolute Lymphocytes 1.9 10^3/uL (1.2-3.4); Absolute Monocytes 0.6 10^3/uL (0.1-0.6); Absolute Neutrophils 2.2 10^3/uL (1.4-6.5); Hemoglobin 15.7 g/dL (13.0-18.0); Mean Corpuscular Hgb 31.1 pg (27.0-31.0); Mean Platelet Volume 11.3 fL (7.4-10.4); Nucleated Red Blood Cells % 0 % (-); Platelet Count 172 10^3/uL (130-400); Red Blood Cell Count 5.05 10^6/uL (4.70-6.10); Red Cell Dist. Width 13.4 % (11.5-14.5); White Blood Cell Count 4.9 10^3/uL (4.8-10.8)
[2024-12-19 16:19] LABS: HDL Cholesterol 72 mg/dl; LDL Cholesterol, Calculated 79 mg/dl; Total Cholesterol 163 mg/dl (50-199); Triglyceride 62 mg/dl (10-149); Very Low Density Lipoprotein 12 mg/dl (0-30)
[2024-12-20 08:58] LABS: Glycohemoglobin (HgbA1c) 5.7 % (4.0-5.6)
== END ==
LOC: CLAB 15:36
PROVIDERS: ATTENDING PHYSICIAN Student in an Organized Health Care Education/Training Program
DX: D62 Acute posthemorrhagic anemia (principal); E78.5 Hyperlipidemia, unspecified; R73.9 Hyperglycemia, unspecified
CPT/HCPCS: 36415; 80061; 83036; 85025